=== PATIENT | male | born 1980 | race Caucasian/White ===

== ENCOUNTER 2020-06-24 06:52 | Day surgery (SDC) | payer MEDICAID ==
[2020-06-24] MEDS ORDERED: fentaNYL 100 MCG/2 ML SDV ONE (07:12)
[2020-06-24] MEDS ORDERED: Propofol 200 MG/20 ML SDV ONE ×2 (07:12→08:41)
[2020-06-24] MEDS ORDERED: Midazolam 1 MG/ML 2 ML SDV ONE (07:12)
[2020-06-24] MEDS ORDERED: Dextrose 5%-Lactated Ringers 1,000 ML IV SCH (07:30)
--- NOTE | 2020-06-25 07:19 | OR ---
DATE OF PROCEDURE: 06/24/2020 SURGEON: Paolo Lopez MD PREOPERATIVE DIAGNOSIS: Indications for screening colonoscopy. POSTOPERATIVE DIAGNOSIS: A single small polyp just above dentate line within rectum. OPERATIVE PROCEDURE: Flexible colonoscopy with polypectomy of rectal polyp by means of cold biopsy forceps. ANESTHESIA: IV sedation. INDICATION FOR PROCEDURE: This is a 40-year-old male presenting with indications for screening colonoscopy. He has a family history of father having colonoscopy, though he is initiating a screening somewhat earlier than typical. The plan was to proceed with a colonoscopy with biopsies and/or polypectomy as indicated. Potential risks of the procedure including bleeding and perforation were discussed and the patient wishes to proceed. DETAILS OF PROCEDURE: The patient was taken to the operating room, placed in left lateral decubitus position. IV sedation was administered after which the initial digital rectal exam was performed and was unremarkable. Colonoscope was passed into the rectum with retroflexion revealing a single small polyp, roughly 1 cm above the dentate line, along with otherwise uncomplicated hemorrhoidal columns. Scope was eventually passed to cecum. No additional pathology was seen. Prep was generally good with only small amount of liquid stool present. Apart from the rectal polyp, there were no additional polyps or other signs of neoplasia were seen. There were no diverticula or areas of colitis. Scope was then withdrawn back down into the rectum. The area of concern which measured around 2 mm was removed by means of cold biopsy forceps in somewhat of a fragmented condition and the procedure was then concluded. Hemostasis appeared to be adequate at the polypectomy site and the patient was taken to the recovery room in satisfactory condition. Recommendation would be to repeat the colonoscopy in 2 years. Paolo Lopez MD /[id number]
== END 2020-06-24 09:58 | disposition home or self-care (01) ==
LOC: JP.SDS 06:52
PROVIDERS: ATTEND Surgery
DX: Z12.11 Encounter for screening for malignant neoplasm of colon (principal); K62.1 Rectal polyp; K64.9 Unspecified hemorrhoids; F17.200 Nicotine dependence, unspecified, uncomplicated
CPT/HCPCS: 88305; J2250; J2704; J3010; J7121

== ENCOUNTER 2021-06-21 10:59 | Emergency (ER) | payer MEDICAID ==
[2021-06-21 11:58] LABS: CORONAVIRUS COVID-19 NAA POSITIVE (NEGATIVE)
== END 2021-06-21 12:48 | disposition home or self-care (01) ==
LOC: JP.ED 10:59
DX: J06.9 Acute upper respiratory infection, unspecified (principal); U07.1 COVID-19; Z72.0 Tobacco use
CPT/HCPCS: 0241U; 99282; 99284